=== PATIENT | male | born 1995 | race Caucasian/White ===

== ENCOUNTER 2025-01-16 10:23 | Emergency (ER) | payer OTHER ==
[~2025-01-16] VITALS: Ht 180.3 cm; Wt 95.9 kg
[2025-01-16 12:18] VITALS: BP 130/70; TEMP 98; O2SAT 97
== END 2025-01-16 12:23 | disposition home or self-care (01) ==
LOC: M ED 10:23
DX: S90.31XA Contusion of right foot, initial encounter (principal); W22.8XXA Striking against or struck by other objects, initial encounter; Y92.9 Unspecified place or not applicable; Y93.01 Activity, walking, marching and hiking; Y99.1 Military activity

== ENCOUNTER → 2025-02-03 | Outpatient (REF) | payer OTHER | LOC: M SMT 12:48 | PROVIDERS: ATTEND Urology | DX: Z30.2 Encounter for sterilization (principal) ==